=== PATIENT | male | born 1965 | race Caucasian/White ===

== ENCOUNTER 2016-10-24 08:44 | Day surgery (SDC) | payer BC ==
[2016-10-20 14:45] VITALS: BMI 30.3
--- NOTE | 2016-10-21 08:13 | HP ---
DATE OF ADMISSION: DATE OF DICTATION: 09/25/2016 DATE OF SURGERY: 10/24/2016. REASON FOR ADMISSION: Chronically incarcerated ventral hernia. BRIEF HISTORY: This is a 50-year-old gentleman who has had a ventral hernia for many years. Over this time course, the hernia has gotten fairly large and now he has pain in the area. The hernia also protrudes. He has had no bouts of nausea or vomiting. He had no change in bowel habits. PAST MEDICAL HISTORY: Patient has had no coronary disease or diabetes. The patient has a history of hypercholesterolemia. MEDICATIONS: None. PAST SURGICAL HISTORY: Excision of a submuscular lipoma in 2011 and excision of a cyst. ALLERGIES: None. SOCIAL HISTORY: Patient does not smoke. He drinks socially. PHYSICAL EXAMINATION: HEENT: Unremarkable. Lungs: Clear. Heart: Regular rhythm. Abdomen: Soft, nontender, nondistended. He has an upper midline diastasis. He has a chronically incarcerated hernia noted in the midline. The defects are not appreciated due to its chronically incarcerated nature. The skin overlying the hernia is thinned. The hernia is obvious. Chronically incarcerated ventral hernia, abdominal pain: This is a 50-year-old gentleman with a very long-standing history of having a ventral hernia. The hernia has gotten larger and now he has pain in the area. At this point I would recommend proceeding with a repair of this hernia. We have discussed the pros and cons of a laparoscopic repair versus an open repair with an attempt at a retrorectus repair/preperitoneal repair. The patient has opted to go for an open repair with mesh. At the time of surgery, he may need bilateral component separations, pending the defect size and now poorly attenuated the patient's tissue is. The indications, alternatives, and complications of procedure discussed, questions answered. Will plan to obtain written consent the day of surgery. Ya HARDY [id number] cc: Dr. Francis Obregon, [place] [id number],
[2016-10-24] MEDS ORDERED: TAMSULOSIN HCL 0.4 MG CAP.ER.24H (FP) ONE (09:01)
[2016-10-24] MEDS ORDERED: morphine CARPU-JECT 10 MG/1 ML DISP.SYRIN IVPB PRN (09:49)
[2016-10-24] MEDS ORDERED: ENOXAPARIN NA (PORCINE) 40 MG/0.4 ML DISP.SYRIN SQ SCH (10:00)
[2016-10-24] MEDS ORDERED: amLODIPine BESYLATE 5 MG TABLET (FP) PO SCH (10:00)
[2016-10-24] MEDS ORDERED: PANTOPRAZOLE SODIUM 100 ML IVPB SCH (10:00)
[2016-10-24] MEDS ORDERED: D5-1/2NS+20 MEQ KCL - 1,000 ML IV SCH (10:00)
[2016-10-24] MEDS ORDERED: PROPOFOL 20 ML ONE (10:06)
[2016-10-24] MEDS ORDERED: ROCURONIUM BROMIDE 50 MG/5 ML VIAL ONE ×2 (10:06→10:46)
[2016-10-24] MEDS ORDERED: MIDAZOLAM HCL 2 MG/2 ML SINGLE DOSE VIAL ONE ×2 (10:06)
[2016-10-24] MEDS ORDERED: ONDANSETRON 4 MG/2 ML VIAL IVPB PRN (10:10)
[2016-10-24] MEDS ORDERED: oxyCODONE HCL 5 MG TABLET PO PRN (10:10)
[2016-10-24] MEDS ORDERED: ceFAZolin SODIUM 1 GM VIAL ONE (10:31)
[2016-10-24] MEDS ORDERED: DEXAMETHASONE SOD PHOSPHATE 4 MG/1 ML VIAL ONE (11:10)
[2016-10-24] MEDS ORDERED: ONDANSETRON 4 MG/2 ML VIAL ONE ×2 (11:10→12:12)
[2016-10-24] MEDS ORDERED: NEOSTIGMINE METHYLSULFATE 0.5 MG/ML - 10 ML MDV ONE (11:24)
[2016-10-24] MEDS ORDERED: LACTATED RINGERS SOLUTION 1,000 ML IV SCH (12:00)
[2016-10-24] MEDS ORDERED: ONDANSETRON 4 MG/2 ML VIAL IVPUSH PRN (12:05)
--- NOTE | 2016-10-24 17:32 | OP ---
DATE OF OPERATION: 10/24/2016 PREOPERATIVE DIAGNOSIS: Chronically incarcerated complex ventral hernia. POSTOPERATIVE DIAGNOSIS: Chronically incarcerated complex ventral hernia. PROCEDURE: Open repair of complex chronically incarcerated ventral hernia with mesh, bilateral component separation, bladder mobilization, peritoneal lavage. SURGEON: See Guillaume M.D. SENIOR SCIENCE CONSULTANT: Laurent Alonzo M.D. ANESTHESIA: Karla Deluna MD (general). ESTIMATED BLOOD LOSS: Minimal. SPECIMEN: None. INDICATION FOR PROCEDURE: This is a 51-year-old gentleman with a known chronically incarcerated ventral hernia. He has had this for many years, and over this time the hernia has gotten significantly larger, and now he has pain in the area. He wishes to have this repaired. DESCRIPTION OF PROCEDURE: Patient is identified, and appropriately positioned on operating room table. After he is placed on general anesthesia, the abdomen prepped and draped in the usual sterile fashion with Chloraprep. A midline incision was made, deepened through the subcutaneous tissue. The hernia identified, dissected free from the subcutaneous tissue with blunt dissection down to the level of the fascia. It was then circumferentially isolated at the fascial level. At the fascial level, patient is noted to have multiple [place] cheese type defects throughout the fascia and the incision. All these little bridges were subsequently divided, and the defect this patient has is approximately 7.5 to 8 cm in size. Given the size of this defect, this cannot be closed with just a large piece of mesh without a component separation; therefore, bilateral component separation was performed as well. The hernia sac opened and was a slider and contained omentum. The sac was irrigated , portions of the omentum were reduced as needed. The sac was then suture ligated. The retrorectus space identified on the patient's right side and the space was then subsequently mobilized with blunt dissection out laterally. The perforating vessels identified. The transversus fascia was then scored at this level, and the transversus was freed from the obliques as well as the rectus. This planed lateral to the perforating vessels was subsequently developed with blunt dissection. The myofascial separation was done the length of the incision plus 4 to 5 cm above and below as well. A similar technique entering the retrorectus space was used on the patient's left side, and again the left rectus muscles mobilized off the posterior sheath with blunt dissection. The perforating vessels identified, the fascia was then subsequently scored just medial to the perforating vessels, and the myofascial separation was performed between the transversus and obliques and the rectus as well. This was done again for 5 cm above and below the incision. The posterior sheath was then reapproximated with a running, locking 3-0 Maxon suture. For the operative repair, a piece of Phasix 10 x 15 was used as well as a 15 x 30 piece of Progrip. The 2 pieces of mesh were sewn together in a hybrid fashion. The mesh was then placed into the retrorectus space and then anchored with interrupted Absorbatack sutures (deep purchase). The operative field was examined, noted to be hemostatic. The mesh irrigated, and retrieved. Irrigant retrieved. The fascia overlying the mesh reapproximated with interrupted 0 PDS sutures. The subcutaneous space irrigated as well. ABDIAZIZ placed and brought out through a separate stab incision. The skin closed with maria g followed by Dermabond. At the conclusion of this case, sponge and needle counts were correct. ATTESTATION: Brief operative note handwritten on the preprinted form. [facility] will be queried prior to giving any narcotics and will be done electronically. Ya HARDY [id number] cc: Dr. Francis ROJAS
[2016-10-25 05:51] VITALS: BP 126/70; PULSE 70; TEMP 98.5
== END 2016-10-25 09:34 | disposition home or self-care (01) ==
LOC: FASU 08:44 → FM/S 13:41 → FASU 10-25 09:34
PROVIDERS: ATTEND Surgery
PROC: 0WUF0JZ Supplement Abdominal Wall with Synthetic Substitute, Open Approach (ICD-10-PCS; principal; 2016-10-24 10:31)
DX: K43.6 Other and unspecified ventral hernia with obstruction, without gangrene (principal)
CPT/HCPCS: 94010; 94760